=== PATIENT | female | born 1985 ===

== ENCOUNTER 2017-07-26 12:22 | Emergency (ER) | payer OTHER ==
[2017-07-26 12:34] VITALS: TEMP 98.7
[2017-07-26] MEDS ORDERED: Sodium Chloride 0.9% 1,000 ML IV STA (12:54)
--- NOTE | 2017-07-26 13:02 | ED PDOC ---
HPI: Abdomen Time Seen by Provider: 07/26/17 12:43 Chief Complaint (Nursing): Abdominal Pain Chief Complaint (Provider): epigastric pain History Per: Patient History/Exam Limitations: no limitations Onset/Duration Of Symptoms: Days (x 1) Additional Complaint(s): Liliane Gomes is a 31 year old female, with a previous medical history of gastritis, who presents to the ED with complaints of epigastric pain that radiates up associated with vomiting ongoing for one day. She reports symptoms are consistent with previous symptoms which she has had multiple times intermittently in the past. She denies any fever, chills, diarrhea, numbness, tingling, shortness of breath or headache. She reports vomit is non bloody. No weakness. PMD: none provided Past Medical History Reviewed: Historical Data, Nursing Documentation, Vital Signs Vital Signs: Last Vital Signs Temp 98.7 F 07/26/17 12:32 Pulse 77 07/26/17 12:32 Resp 16 07/26/17 12:32 BP 107/65 07/26/17 12:32 Pulse Ox 100 07/26/17 13:07 - Medical History PMH: Gastritis - Surgical History Surgical History: No Surg Hx - Family History Family History: States: Unknown Family Hx - Living Arrangements Living Arrangements: With Family - Social History Current smoker - smoking cessation education provided: No Alcohol: None Drugs: Denies - Home Medications Home Medications: Ambulatory Orders Medication Instructions Recorded Famotidine [Pepcid] 20 mg PO DAILY PRN #6 tab 07/26/17 - Allergies Allergies/Adverse Reactions: Allergies Allergy/AdvReac Type Severity Reaction Status Date / Time No Known Allergies Allergy Verified 07/26/17 12:32 Review of Systems ROS Statement: Except As Marked, All Systems Reviewed And Found Negative Constitutional: Negative for: Fever, Chills Cardiovascular: Negative for: Chest Pain Respiratory: Negative for: Shortness of Breath Gastrointestinal: Positive for: Nausea, Vomiting, Abdominal Pain. Negative for : Diarrhea Neurological: Negative for: Numbness, Headache Physical Exam - Reviewed Nursing Documentation Reviewed: Yes Vital Signs Reviewed: Yes - Physical Exam Appears: Positive for: Non-toxic, No Acute Distress Head Exam: Positive for: ATRAUMATIC, NORMAL INSPECTION, NORMOCEPHALIC Skin: Positive for: Normal Color, Warm, Dry Eye Exam: Positive for: Normal appearance ENT: Positive for: Normal ENT Inspection Neck: Positive for: Normal, Painless ROM Cardiovascular/Chest: Positive for: Regular Rate, Rhythm Respiratory: Positive for: Normal Breath Sounds. Negative for: Decreased Breath Sounds, Accessory Muscle Use, Wheezing, Respiratory Distress Gastrointestinal/Abdominal: Positive for: Bowel Sounds, Soft, Tenderness (mild epigastric; no left or right lower or upper quadrant tenderness) Back: Positive for: Normal Inspection. Negative for: L CVA Tenderness, R CVA Tenderness Extremity: Positive for: Normal ROM. Negative for: Tenderness, Pedal Edema Neurologic/Psych: Positive for: Alert, Oriented - Laboratory Results Result Diagrams: 07/26/17 13:00 07/26/17 13:00 Interpretation Of Abn Labs: no acute - ECG ECG: Positive for: Interpreted By Me, Viewed By Me ECG Rhythm: Positive for: Normal QRS, Normal ST Segment, Sinus Rhythm O2 Sat by Pulse Oximetry: 100 (RA) Pulse Ox Interpretation: Normal - Radiology X-Ray: Interpreted by Me, Viewed By Me X-Ray Interpretation: No Acute Disease - Progress ED Course And Treament: 1452: Stable. AAOx3. Pain free. Tolerated PO. Fu with pcp. Medical Decision Making Medical Decision Making: Initial Impression: epigastric pain Initial Plan: * EKG * lipase * Troponin I * urine dipstick * urine * pepcid 20 mg IV * IV NS 1,000 ml at 1,000 ml/hr * reevaluation Scribe Attestation: Documented by Cami Ramírez, acting as a scribe for Manny Batres MD. Provider Scribe Attestation: All medical record entries made by the Scribe were at my direction and personally dictated by me. I have reviewed the chart and agree that the record accurately reflects my personal performance of the history, physical exam, medical decision making, and the department course for this patient. I have also personally directed, reviewed, and agree with the discharge instructions and disposition. Disposition - Clinical Impression Clinical Impression: Abdominal pain - Patient ED Disposition Is Patient to be Admitted: No Counseled Patient/Family Regarding: Studies Performed, Diagnosis, Need For Followup, Rx Given - Disposition Referrals: [facility] [Outside] - 07/27/17 Disposition: Routine/Home Disposition Time: 14:53 Condition: STABLE Additional Instructions: Return if not better in 3 days. Prescriptions: Famotidine [Pepcid] 20 mg PO DAILY PRN #6 tab PRN Reason: Pain Instructions: Acute Abdominal Pain (ED) Forms: [employer] (Macanese)
[2017-07-26 13:19] LABS: BASO % 0.4 % (0.0-2.0); EOS # 0.1 K/uL (0.0-0.7); EOS % 0.9 % (0.0-4.0); HEMATOCRIT 42.8 % (34.0-47.0); LYMPH # 1.5 K/uL (1.0-4.3); LYMPH % 20.1 % (20.0-40.0); MEAN CELL VOLUME 88.8 fl (81.0-99.0); MEAN CORPUSCULAR HEMOGLOBIN 29.8 pg (27.0-31.0); MEAN CORPUSCULAR HGB CONC 33.5 g/dL (33.0-37.0); MEAN PLATELET VOLUME 7.4 fl (7.2-11.7); MONO # 0.6 K/uL (0.0-0.8); MONO % 7.8 % (0.0-10.0); NEUT # 5.3 K/uL (1.8-7.0); NEUT % 70.8 % (50.0-75.0); NRBC % 0.1 % (0.0-0.0); RED CELL DISTRIBUTION WIDTH 13.2 % (11.5-14.5); WHITE BLOOD COUNT 7.5 K/uL (4.8-10.8)
[2017-07-26 13:42] LABS: ALB/GLOB RATIO 1.3 (1.0-2.1); ALKALINE PHOSPHATASE 74 U/L (38-126); ALT/SGPT 41 U/L (9-52); AST/SGOT 27 U/L (14-36); BILIRUBIN,TOTAL 0.8 mg/dl (0.2-1.3); BLOOD UREA NITROGEN 10 mg/dl (7-17); CALCIUM 9.8 mg/dL (8.4-10.2); CARBON DIOXIDE 25 mmol/L (22-30); CHLORIDE 103 mmol/L (98-107); GFR AFRICAN-AMERICAN > 60; GLUCOSE,RANDOM 94 mg/dL (65-105); LIPASE 94 U/L (23-300); POTASSIUM 4.2 MMOL/L (3.6-5.0); SODIUM 140 mmol/l (132-148); TOTAL PROTEIN 8.7 G/DL (6.3-8.2)
--- NOTE | 2017-07-26 14:53 | RAD ---
HISTORY: epigastric pain COMPARISON: No prior. FINDINGS: LUNGS: The lungs are well inflated and clear. PLEURA: No significant pleural effusion identified, no pneumothorax apparent. CARDIOVASCULAR: Normal. OSSEOUS STRUCTURES: No significant abnormalities. VISUALIZED UPPER ABDOMEN: Normal. OTHER FINDINGS: None. IMPRESSION: No active pulmonary disease.
[2017-07-26 15:47] VITALS: BP 124/80; PULSE 78; RESP 18; O2SAT 99
--- NOTE | 2017-07-28 11:38 | CARD ---
APPROVED REPORT EKG Measurement Heart [id number] <Conclusion> Normal sinus rhythm Normal ECG
== END 2017-07-26 16:00 | disposition home or self-care (01) ==
LOC: H.ER 12:22
DX: R10.13 Epigastric pain (principal); R11.10 Vomiting, unspecified
CPT/HCPCS: 71010; 80053; 81025; 83690; 84484; 85025; 93005; 96361; 96374; 99283; J7040

== ENCOUNTER 2018-02-09 17:01 | Emergency (ER) | payer SELFPAY ==
[2018-02-09 17:09] VITALS: BP 113/73; PULSE 91; RESP 16; TEMP 97.6; O2SAT 98
--- NOTE | 2018-02-09 18:03 | ED PDOC ---
HPI: Abdomen Time Seen by Provider: 02/09/18 18:01 Chief Complaint (Nursing): Abdominal Pain Chief Complaint (Provider): rlq pain History Per: Patient (32 y/o female here rlq since 2 pm gradual onset associated with mild dysuria. Denies any fevers/chills/vomiting/diarrhea. Has had recent d & c for demise 12/08.) Past Medical History Reviewed: Historical Data, Nursing Documentation, Vital Signs Vital Signs: Last Vital Signs Temp 97.6 F 02/09/18 17:04 Pulse 91 H 02/09/18 17:04 Resp 16 02/09/18 17:04 BP 113/73 02/09/18 17:04 Pulse Ox 98 02/09/18 18:03 - Medical History PMH: Gastritis - Family History Family History: States: Unknown Family Hx - Home Medications Home Medications: Ambulatory Orders Medication Instructions Recorded Famotidine [Pepcid] 20 mg PO DAILY PRN #6 tab 07/26/17 - Allergies Allergies/Adverse Reactions: Allergies Allergy/AdvReac Type Severity Reaction Status Date / Time No Known Allergies Allergy Verified 07/26/17 12:32 Review of Systems ROS Statement: Except As Marked, All Systems Reviewed And Found Negative Gastrointestinal: Positive for: Abdominal Pain Physical Exam - Reviewed Nursing Documentation Reviewed: Yes Vital Signs Reviewed: Yes - Physical Exam Appears: Positive for: Well, Non-toxic, No Acute Distress Head Exam: Positive for: ATRAUMATIC, NORMAL INSPECTION, NORMOCEPHALIC Skin: Positive for: Normal Color, Warm, DRY Eye Exam: Positive for: EOMI, Normal appearance, PERRL ENT: Positive for: Normal ENT Inspection Neck: Positive for: Normal, Painless ROM Cardiovascular/Chest: Positive for: Regular Rate, Rhythm Respiratory: Positive for: CNT, Normal Breath Sounds Gastrointestinal/Abdominal: Positive for: Normal Exam, Bowel Sounds, Soft Back: Positive for: Normal Inspection Extremity: Positive for: Normal ROM Neurologic/Psych: Positive for: Alert, Oriented - Laboratory Results Result Diagrams: 02/09/18 18:14 02/09/18 18:14 - ECG O2 Sat by Pulse Oximetry: 98 - Progress ED Course And Treament: TRANSVAGINAL US: IMPRESSION: No acute abnormality. No evidence of ovarian torsion or tubo-ovarian abscess. WBC ELEVATED 15. WILL CT ABD/PELVIS TO EVALUATE FOR APPENDICITIS Disposition - Clinical Impression Clinical Impression: Abdominal pain in female - Patient ED Disposition Is Patient to be Admitted: Transfer of Care - Disposition Disposition: Transfer of Care Disposition Time: 20:00 Condition: FAIR Forms: [email or web address] (Czech) Patient Signed Over To: Karlene Munoz Handoff Comments: PENDING CT EVALUATION FOR APPENDICITIS
[2018-02-09 18:17] LABS: BASO # 0.1 K/uL (0.0-0.2); BASO % 0.6 % (0.0-2.0); EOS # 0.1 K/uL (0.0-0.7); EOS % 0.9 % (0.0-4.0); HEMOGLOBIN 12.7 g/dL (12.0-16.0); LYMPH # 1.9 K/uL (1.0-4.3); LYMPH % 12.6 % (20.0-40.0); MEAN CELL VOLUME 88.4 fl (81.0-99.0); MEAN CORPUSCULAR HEMOGLOBIN 29.3 pg (27.0-31.0); MEAN CORPUSCULAR HGB CONC 33.2 g/dL (33.0-37.0); MEAN PLATELET VOLUME 7.2 fl (7.2-11.7); MONO # 1.1 K/uL (0.0-0.8); MONO % 6.9 % (0.0-10.0); NEUT # 12.1 K/uL (1.8-7.0); NRBC % 0.1 % (0.0-0.0); RBC 4.33 Mil/uL (3.80-5.20); RED CELL DISTRIBUTION WIDTH 13.6 % (11.5-14.5); WHITE BLOOD COUNT 15.3 K/uL (4.8-10.8)
[2018-02-09 18:38] LABS: ALB/GLOB RATIO 1.1 (1.0-2.1); ALBUMIN 4.3 g/dL (3.5-5.0); ALT/SGPT 29 U/L (9-52); AST/SGOT 27 U/L (14-36); BLOOD UREA NITROGEN 10 mg/dl (7-17); CALCIUM 9.2 mg/dL (8.4-10.2); GFR AFRICAN-AMERICAN > 60; GFR NON-AFRICAN AMERICAN > 60
[2018-02-09 18:52] LABS: SQUAMOUS EPITHIAL 1 /hpf (0-5); URINE BACTERIA RARE (<OCC); URINE BILIRUBIN NEGATIVE (NEGATIVE); URINE BLOOD NEGATIVE (NEGATIVE); URINE CLARITY CLOUDY (Clear); URINE COLOR YELLOW (YELLOW); URINE GLUCOSE (UA) NEG (Normal); URINE LEUKOCYTE ESTERASE TRACE Leu/uL (Negative); URINE PROTEIN 30 mg/dL (NEGATIVE); URINE UROBILINOGEN 0.2-1.0 mg/dL (0.2-1.0)
--- NOTE | 2018-02-09 18:58 | US ---
HISTORY: right adnexal tenderness COMPARISON: None available. TECHNIQUE: Transvaginal FINDINGS: UTERUS: Measures 7.3 x 3.3 x 5.1 cm. Normal in size and appearance. No fibroid or other mass lesion seen. ENDOMETRIUM: Measures 6 mm in diameter. Unremarkable. CERVIX: Trace endocervical fluid, nonspecific RIGHT OVARY: Measures 2.9 x 2.0 x 1.6 cm. No solid mass. Normal flow. LEFT OVARY: Measures 2.4 x 1.4 x 2.0 cm. No solid mass. Normal flow. FREE FLUID: No significant free fluid noted. OTHER FINDINGS: None. IMPRESSION: No acute abnormality. No evidence of ovarian torsion or tubo-ovarian abscess.
[2018-02-09] MEDS ORDERED: Iohexol 300 100 ML IJ ONE (19:29)
[2018-02-09] MEDS ORDERED: Sodium Chloride 0.9% 100 ML ONE (19:29)
--- NOTE | 2018-02-09 20:24 | ED PDOC ---
- Laboratory Results Result Diagrams: 02/09/18 18:14 02/09/18 18:14 Urine POC: Negative Urine dip results: Positive for: Leukocyte Esterase (trace), Blood (trace), Ketones (trace). Negative for: Nitrate, Glucose, Bilirubin - ECG O2 Sat by Pulse Oximetry: 98 (RA) Pulse Ox Interpretation: Normal Medical Decision Making Medical Decision Makin:00 Case endorsed to poem writerAlexander PA-C, due to shift change. Pertinent details and labs reviewed. Patient pending CT evaluation to R/O Appendicitis. Transvaginal U/S reviewed: Consolidation Accountant : David Kendall MD Approver2 : Report Date : 02/09/2018 18:57:07 HISTORY: right adnexal tenderness COMPARISON: None available. TECHNIQUE: Transvaginal FINDINGS: UTERUS: Measures 7.3 x 3.3 x 5.1 cm. Normal in size and appearance. No fibroid or other mass lesion seen. ENDOMETRIUM: Measures 6 mm in diameter. Unremarkable. CERVIX: Trace endocervical fluid, nonspecific RIGHT OVARY: Measures 2.9 x 2.0 x 1.6 cm. No solid mass. Normal flow. LEFT OVARY: Measures 2.4 x 1.4 x 2.0 cm. No solid mass. Normal flow. FREE FLUID: No significant free fluid noted. OTHER FINDINGS: None. IMPRESSION: No acute abnormality. No evidence of ovarian torsion or tubo- ovarian abscess. 20:[address] 21:10 CT reviewed, radiology report follows EXAM: CT Abdomen and Pelvis With Intravenous Contrast CLINICAL HISTORY: 32 years old, female; Pain; Abdominal pain; Localized; Lower; Prior surgery; Surgery date: 1-6 months; Surgery type: Miscarriage. 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 All CT scans at this facility use one or more dose reduction techniques, viz.: automated exposure control; ma/kV adjustment per patient size (including targeted exams where dose is matched to indication; i.e. head); or iterative reconstruction technique. Coronal and sagittal reformatted images were created and reviewed. CONTRAST: 90 mL of OMNIPAQUE 300 administered intravenously. COMPARISON: No relevant prior studies available. FINDINGS: Lower thorax: LLL calcified granuloma. ABDOMEN: Liver: Probable mild fatty infiltration. Gallbladder and bile ducts: No calcified stones. No ductal dilation. Pancreas: No ductal dilation. No mass. Spleen: No splenomegaly. Adrenals: No mass. Kidneys and ureters: No mass. No hydronephrosis. Stomach and bowel: No definite mural thickening. Few minimally distended loops of small bowel, likely ileus. Appendix: Normal caliber. No definite inflammation. PELVIS: Bladder: Unremarkable. Reproductive: Mild heterogeneity of uterus/cervix. ABDOMEN and PELVIS: Intraperitoneal space: Trace free fluid within pelvis. No free air. Bones/joints: No acute fracture. Soft tissues: Tiny umbilical hernia containing fat. Vasculature: Unremarkable. No aneurysm. Lymph nodes: No pathologically enlarged lymph nodes. IMPRESSION: 1. No definite CT evidence of appendicitis. 2. Mild heterogeneity of uterus/cervix, nonspecific. Consider ultrasound. 3. Incidental/non-acute findings are described above. Thank you for allowing us to participate in the care of your patient. Dictated and Authenticated by: Kevin Alonso MD 02/09/2018 8:59 PM Eastern Time ([place] & [place]) 21:20 On re-evaluation, patient reports improvement of symptoms however with persistent dysuria, denies any abdominal pain at present. On exam, patient remains AAOx3, in no acute distress. Lungs clear to auscultation, cardiac RRR, abdomen soft, non-tender, repeat neuro exam shows no focal findings. (-) CVA tenderness bilaterally. Macrobid and Pyridium PO ordered and administered. Lab results reviewed, diagnostic results d/w the patient in great detail. Diagnosis of abdominal pain, UTI d/w the patient. Based on history, exam and diagnostic results, plan will be for outpatient follow up. Patient instructed to follow-up with pmd / referral provided / the clinic in 1- 2 days without fail. Advised to take medication as prescribed. Return to the emergency room at any time for any new or worsening symptoms. Patient states she fully agrees with and understands discharge instructions. States that she agrees with the plan and disposition. Verbalized and repeated discharge instructions and plan. I have given the patient opportunity to ask any additional questions. Disposition Counseled Patient/Family Regarding: Studies Performed, Diagnosis, Need For Followup, Rx Given - Clinical Impression Clinical Impression: Abdominal pain in female, UTI (urinary tract infection), Dysuria - POA Present On Arrival: None - Disposition Referrals: Kelli Delgado MD [Medical Doctor] - Disposition: Routine/Home Disposition Time: 21:37 Condition: STABLE Prescriptions: Nitrofurantoin Macrocrystals [Macrobid] 100 mg PO BID #14 cap Phenazopyridine [Pyridium] 200 mg PO BID PRN #4 tab PRN Reason: urinary discomfort Instructions: Urinary Tract Infections in Adults, Acute Abdomen (Belly Pain), Adult (DC) Forms: [facility] [employer] (Wallisian) Print Language: AMHARIC Results - Lab Results Lab Results: 02/09/18 02/09/18 02/09/18 18:14 18:14 17:58 WBC 15.3 H RBC 4.33 Hgb 12.7 Hct 38.3 MCV 88.4 MCH 29.3 MCHC 33.2 RDW 13.6 Plt Count 298 MPV 7.2 Neut % (Auto) 79.0 H Lymph % (Auto) 12.6 L Edwards % (Auto) 6.9 Eos % (Auto) 0.9 Baso % (Auto) 0.6 Neut # (Auto) 12.1 H Lymph # (Auto) 1.9 Edwards # (Auto) 1.1 H Eos # (Auto) 0.1 Baso # (Auto) 0.1 Sodium 144 Potassium 3.7 Chloride 105 Carbon Dioxide 26 Anion Gap 17 BUN 10 Creatinine 0.6 L Est GFR ( Amer) > 60 Est GFR (Non-Af Amer) > 60 Random Glucose 89 Calcium 9.2 Total Bilirubin 0.7 AST 27 ALT 29 Alkaline Phosphatase 67 Total Protein 8.1 Albumin 4.3 Globulin 3.8 Albumin/Globulin Ratio 1.1 Urine Color Yellow Urine Clarity Cloudy Urine pH 5.0 Ur Specific Sparkill 1.029 Urine Protein 30 Urine Glucose (UA) Neg Urine Ketones Negative Urine Blood Negative Urine Nitrate Negative Urine Bilirubin Negative Urine Urobilinogen 0.2-1.0 Ur Leukocyte Esterase Trace Urine RBC (Auto) 2 Urine Microscopic WBC 1 Ur Squamous Epith Cells 1 Urine Bacteria Rare
--- NOTE | 2018-02-09 20:59 | CT ---
EXAM: CT Abdomen and Pelvis With Intravenous Contrast CLINICAL HISTORY: 32 years old, female; Pain; Abdominal pain; Localized; Lower; Prior surgery; Surgery date: 1-6 months; Surgery type: Miscarriage. Dnc; Patient HX: Pt yulisa had multiple miscarriages; Additional info: R/O appendicitis TECHNIQUE: Axial computed tomography images of the abdomen and pelvis with intravenous contrast. All CT scans at this facility use one or more dose reduction techniques, viz.: automated exposure control; ma/kV adjustment per patient size (including targeted exams where dose is matched to indication; i.e. head); or iterative reconstruction technique. Coronal and sagittal reformatted images were created and reviewed. CONTRAST: 90 mL of OMNIPAQUE 300 administered intravenously. COMPARISON: No relevant prior studies available. FINDINGS: Lower thorax: LLL calcified granuloma. ABDOMEN: Liver: Probable mild fatty infiltration. Gallbladder and bile ducts: No calcified stones. No ductal dilation. Pancreas: No ductal dilation. No mass. Spleen: No splenomegaly. Adrenals: No mass. Kidneys and ureters: No mass. No hydronephrosis. Stomach and bowel: No definite mural thickening. Few minimally distended loops of small bowel, likely ileus. Appendix: Normal caliber. No definite inflammation. PELVIS: Bladder: Unremarkable. Reproductive: Mild heterogeneity of uterus/cervix. ABDOMEN and PELVIS: Intraperitoneal space: Trace free fluid within pelvis. No free air. Bones/joints: No acute fracture. Soft tissues: Tiny umbilical hernia containing fat. Vasculature: Unremarkable. No aneurysm. Lymph nodes: No pathologically enlarged lymph nodes. IMPRESSION: 1. No definite CT evidence of appendicitis. 2. Mild heterogeneity of uterus/cervix, nonspecific. Consider ultrasound. 3. Incidental/non-acute findings are described above.
== END 2018-02-09 21:35 | disposition home or self-care (01) ==
LOC: H.ER 17:01
DX: N39.0 Urinary tract infection, site not specified (principal); R30.0 Dysuria
CPT/HCPCS: 74177; 76830; 80053; 81003; 81025; 85025; 87086; 99283; Q9967

== ENCOUNTER 2018-11-26 15:10 | Emergency (ER) | payer OTHER, SELFPAY ==
[2018-11-26 16:02] VITALS: BP 123/79; PULSE 80; RESP 17; TEMP 98.3; O2SAT 100
--- NOTE | 2018-11-26 18:46 | ED PDOC ---
HPI: Female Pain Time Seen by Provider: 11/26/18 17:17 Chief Complaint (Nursing): Female Genitourinary Chief Complaint (Provider): Female Genitourinary History Per: Patient History/Exam Limitations: no limitations Onset/Duration Of Symptoms: Days (x1) Current Symptoms Are (Timing): Still Present Associated Symptoms: denies: Fever Additional Complaint(s): 33 year old female presents to the ED with 1 day of dysuria described as burning with urination. Patient states she noticed a clear type of discharge after urination today. Denies abdominal pain or fever. She reports she is sexually active with only her and thinks she is not at risk for an STD. She states she has had similar symptoms like this in the past. Patient reports she saw her ORTHODONTIC LAB TECHNICIAN and was prescribed Fluconazole. PMD: none Past Medical History Reviewed: Historical Data, Nursing Documentation, Vital Signs Vital Signs: Last Vital Signs Temp 98.3 F 11/26/18 16:01 Pulse 80 11/26/18 16:01 Resp 17 11/26/18 16:01 BP 123/79 11/26/18 16:01 Pulse Ox 100 11/26/18 16:01 - Medical History PMH: Gastritis - Surgical History Surgical History: No Surg Hx - Family History Family History: States: Unknown Family Hx - Home Medications Home Medications: Ambulatory Orders Medication Instructions Recorded Famotidine [Pepcid] 20 mg PO DAILY PRN #6 tab 07/26/17 Nitrofurantoin Macrocrystals 100 mg PO BID #14 cap 02/09/18 [Macrobid] Phenazopyridine [Pyridium] 200 mg PO BID PRN #4 tab 02/09/18 Metronidazole [Metrogel-Vaginal] 0.75 mg VG DAILY 5 Days #5 gel 11/26/18 RX: Fluconazole 150 mg PO ONCE #1 tablet 11/26/18 - Allergies Allergies/Adverse Reactions: Allergies Allergy/AdvReac Type Severity Reaction Status Date / Time No Known Allergies Allergy Verified 07/26/17 12:32 Review of Systems ROS Statement: Except As Marked, All Systems Reviewed And Found Negative Constitutional: Negative for: Fever Gastrointestinal: Negative for: Abdominal Pain Genitourinary Female: Positive for: Dysuria, Vaginal Discharge (clear colored) Physical Exam - Reviewed Nursing Documentation Reviewed: Yes Vital Signs Reviewed: Yes - Physical Exam Appears: Positive for: Non-toxic, No Acute Distress Head Exam: Positive for: ATRAUMATIC, NORMOCEPHALIC Skin: Positive for: Normal Color, Warm, Dry Eye Exam: Positive for: Normal appearance Neck: Positive for: Normal, Painless ROM Cardiovascular/Chest: Positive for: Regular Rate, Rhythm Respiratory: Positive for: Normal Breath Sounds. Negative for: Wheezing, Respiratory Distress Gastrointestinal/Abdominal: Positive for: Normal Exam, Soft. Negative for: Tenderness Pelvic Exam: Positive for: External Exam Normal, Discharge (mild white discharge) Extremity: Positive for: Normal ROM Neurologic/Psych: Positive for: Alert, Oriented. Negative for: Motor/Sensory Deficits - ECG O2 Sat by Pulse Oximetry: 100 (RA) Pulse Ox Interpretation: Normal Medical Decision Making Medical Decision Making: Pt. well appearing, abd. soft/nt. Gc/chlamydia sent but will withold tx pending cxs as pt. is not high risk. U. preg: neg U. dip: neg Rx metrogel and fluconazole. advised f/u with shade classifier Scribe Attestation: Documented by wDight Ballard acting as a scribe for Jenae HANCOCK. Provider Scribe Attestation: All medical record entries made by the Scribe were at my direction and perso shu dictated by me. I have reviewed the chart and agree that the record accurately reflects my personal performance of the history, physical exam, medical decision making, and the department course for this patient. I have also personally directed, reviewed, and agree with the discharge instructions and disposition. Disposition - Clinical Impression Clinical Impression: Vaginitis, Dysuria - Patient ED Disposition Is Patient to be Admitted: No Counseled Patient/Family Regarding: Studies Performed, Diagnosis, Need For Followup, Rx Given - [facility]position [facility] Disposition: Routine/Home Disposition Time: 20:53 Condition: STABLE Prescriptions: RX: Fluconazole 150 mg PO ONCE #1 tablet Metronidazole [Metrogel-Vaginal] 0.75 mg VG DAILY 5 Days #5 gel Instructions: Bacterial Vaginosis (DC), Dysuria, Adult (DC) Forms: [employer] (Urdu) Print Language: PERSIAN
[2018-11-26 19:56] LABS: SQUAMOUS EPITHIAL 7 /hpf (0-5); URINE BACTERIA OCC (<OCC); URINE BILIRUBIN NEGATIVE (NEGATIVE); URINE BLOOD SMALL (NEGATIVE); URINE CLARITY CLOUDY (Clear); URINE COLOR YELLOW (YELLOW); URINE GLUCOSE (UA) NEG (NEGATIVE); URINE LEUKOCYTE ESTERASE LARGE Leu/uL (Negative); URINE PROTEIN NEGATIVE (NEGATIVE); URINE UROBILINOGEN 0.2-1.0 mg/dL (0.2-1.0)
== END 2018-11-26 21:06 | disposition home or self-care (01) ==
LOC: H.ER 15:10
DX: N76.0 Acute vaginitis (principal); R30.0 Dysuria